=== PATIENT | female | born 1965 | race African-American/Black ===

== ENCOUNTER 2018-01-26 15:56 | Emergency (ER) | END 2018-01-26 19:57 | disposition home or self-care (01) ==

== ENCOUNTER 2018-10-21 22:16 | Emergency (ER) | payer OTHER ==
[~2018-10-21] VITALS: Ht 170.2 cm; Wt 104.0 kg
[~2018-10-21 22:16] MED LIST: DOXY100T20 PO; HYDR-4011 PO
[2018-10-21 22:24] VITALS: Ht 170.2 cm; Wt 104.0 kg
--- NOTE | 2018-10-22 00:34 | ERD ---
ER Documentation Chief Complaint Chief Complaint HEADACHE SINCE 1400/HYPERTENSIVE HPI This is a 53-year-old female who presents here to emerge department with complaints of occipital headache and frontal headache for about a day. Also complains of dizziness. Stated that she was on antihypertensive medication before and they took her off. LMP: Stated that it was October 2017. G9, P3 M2 A3 and 1 tubal . Denies head injury, loss of consciousness, dizziness, neck pain, neck stiffness, throat pain, difficulty swallowing, difficulty breathing lying flat, shoulder pain, chest pain, back pain, abdominal pain, nausea, vomiting, constipation, diarrhea, urinary symptoms, or possibility being , loss of bowel and bladder control, trauma, injury, falls, difficulty walking due to pain, numbness or tingling sensation, calf pain, recent travel, recent major surgery in the last 3 weeks, calf pain, recent long travel, recent exposure to any illness, recent antibiotic use in the last 3 months, fever, chills, seizures. Past medical history: Medication: Methocarbamol. Gabapentin. Baclofen. Surgical history: Social: Denies smoking, use of alcoholic beverages, use of illegal drugs. ROS All systems reviewed and are negative except as per history of present illness. Medications Home Meds Active Scripts Meclizine Hcl* (Antivert*) 12.5 Mg Tab, 12.5 MG PO Q6H PRN for DIZZINESS, #20 TAB Prov:PASILABAN,MARSHAAR F 10/22/18 Omeprazole* (Omeprazole*) 40 Mg Capsule.dr, 40 MG PO DAILY, #30 CAP Prov:PASILABAN,KLAR F 10/22/18 Ibuprofen* (Motrin*) 800 Mg Tab, 800 MG PO Q6H PRN for PAIN AND OR ELEVATED TEMP, #30 TAB Prov:PASILABAN,KLAR F 10/22/18 Nnkgldmxyq-Pgjmiqmvqqjym-Silnvwfu* (Fioricet*) 50-300-40 Mg Capsule, 1 CAP PO Q4H PRN for HEADACHE, #14 CAP Prov:PASILABAN,KLAR F 10/22/18 Hydrocodone/Acetaminophen ([place]wood 5-325 Tablet) 1 Each Tablet, 1 TAB PO Q6H PRN for PAIN, #15 TAB Prov:CAN LEZAMA MD 01/26/18 Doxycycline Hyclate* (Doxycycline Hyclate*) 100 Mg Tablet., 100 MG PO BID for 14 Days, TAB Prov:GENET EDMONDS DO 11/16/15 Allergies Allergies: Coded Allergies: No Known Allergy (Unverified , 11/16/15) PMhx/Soc History of Surgery: No Anesthesia Reaction: No Hx Neurological Disorder: No Hx Respiratory Disorders: No Hx Cardiac Disorders: Yes (HTN) Hx Psychiatric Problems: No Hx Miscellaneous Medical Probl: No Hx Alcohol Use: No Hx Substance Use: Yes (marijuana) Hx Tobacco Use: No Physical Exam Vitals Vital Signs Date Temp Pulse Resp B/P (MAP) Pulse Ox O2 O2 Flow FiO2 Time Delivery Rate 10/22/18 98.6 67 18 148/100 100 Room Air 02:28 (116) 10/22/18 75 20 154/93 00:48 (113) 10/21/18 97.9 72 20 176/97 100 22:24 (123) Physical Exam Const: No acute distress Head: Atraumatic Eyes: Normal Conjunctiva. No visual field loss. ENT: Normal External Ears, Nose and Mouth. Bilateral ears: TMs are not erythematous. No bleeding. No discharge with no hearing loss. No mastoid tenderness. Nose: Midline without deviation. No septal hematoma. Throat/lips: No lip swelling. Uvula is midline and nondisplaced. Tonsils are +1 bilaterally without redness without exudates. Tolerating secretions with patent airway. Speaks full and clear sentences. Patent airway. Neck: Full range of motion. No meningismus. No nuchal rigidity. No signs of meningeal irritation. Resp: Clear to auscultation bilaterally. Cardio: Regular rate and rhythm, no murmurs Abd: Soft, non tender, non distended. Normal bowel sounds. No abdominal tenderness. Skin: No petechiae or rashes. No diaphoresis. Color appears normal for ethnicity. No skin tenting. No signs of severe dehydration. Back: No midline or flank tenderness Ext: No cyanosis, or edema Neur: Awake and alert. No obvious facial droop. Sensation is intact. Follows commands. Equal learning disabilities resource teacher. Equal strength in bilateral upper and lower extremities. Romberg test is negative. No neurological deficits. Psych: Normal Mood and Affect. Denies auditory/visual hallucinations/delusions. Not suicidal. Not homicidal. Has the capacity to decide for herself. Has good support system at home. Results 24 hrs Laboratory Tests Test 10/22/18 00:39 Urine Color YELLOW Urine Clarity CLOUDY Urine pH 7.0 Urine Specific [place] 1.017 Urine Ketones NEGATIVE mg/dL Urine Nitrite NEGATIVE mg/dL Urine Bilirubin NEGATIVE mg/dL Urine Urobilinogen NEGATIVE mg/dL Urine Leukocyte Esterase TRACE Dileep/ul Urine Microscopic RBC 2 /HPF Urine Microscopic WBC 5 /HPF Urine Squamous Epithelial Cells FEW /HPF Urine Amorphous Crystals FEW /HPF Urine Yeast (Budding) MANY /HPF Urine Hemoglobin NEGATIVE mg/dL Urine Glucose NEGATIVE mg/dL Urine Total Protein NEGATIVE mg/dl Urine Test NEGATIVE Current Medications Medications Dose Sig/Barbara Start Time Status Last (Trade) Ordered Route PRN Stop Time Admin Dose Reason Admin 1 tab ONCE ONCE 10/22/18 DC 10/22/18 Acetaminophen PO 01:00 00:45 / 10/22/18 01:01 Hydrocodone Bitart (Greenwood (25)) Procedures/MDM Diagnostic tests: hCG urine: Negative. Urinalysis: Reviewed. CT of the brain: 1. Bilateral likely mucous retention cysts in the maxillary sinuses, with relatively high attenuation in the left maxillary sinus mucous retention cyst. 2. Differential considerations include proteinaceous material within the left maxillary sinus mucous retention cyst versus a polyp. 3. Otherwise, no evident acute process in the head. Treatment: Greenwood p.o. Re-evaluation: Denies headache, dizziness. No facial droop. Equal learning disabilities resource teacher. Equal strength bilateral upper and lower extremities. Romberg test negative. No neurological deficits. Denies auditory/visual hallucinations/delusions. Not suicidal. Not homicidal. Has the capacity to decide for herself. Has good support system at home. Differential diagnosis I have low suspicion for subarachnoid hemorrhage, meningitis, acute closure angle glaucoma, sepsis, mastoiditis, peritonsillar abscess. Final diagnosis: Headache. Prescription: Motrin. Fioricet. Antivert. Omeprazole. Follow-up with PCP in the next 24-48 hours. PCP to refer patient to neurologist if symptoms persist. Come back here in the emergency department for any new symptoms or any worsening symptoms. All questions and concerns were answered. Patient and family members verbalized understanding and agreed with plan of care. Hemodynamically stable on discharge. Departure Diagnosis: Primary Impression: Headache Condition: Stable Additional Instructions: Follow-up with PCP in the next 24-48 hours. PCP to refer patient to neurologist if symptoms persist. Come back here in the emergency department for any new symptoms or any worsening symptoms. ELTON NAGEL October 22, 2018 00:34
[2018-10-22] MEDS ORDERED: HYDROCODONE/APAP (10/325) TAB PO ONE (01:00)
[2018-10-22] MEDS ORDERED: IBUP800T48 PO (01:49)
[2018-10-22] MEDS ORDERED: OMEP40CA6 PO (01:49)
[2018-10-22] MEDS ORDERED: BUTA1CAP38 PO (01:49)
[2018-10-22] MEDS ORDERED: MECL12.574 PO (01:50)
[2018-10-22 02:28] VITALS: BP 148/100; PULSE 67; RESP 18
== END 2018-10-22 02:29 | disposition home or self-care (01) ==
LOC: FTE 22:16
DX: R51 Headache (principal); I10 Essential (primary) hypertension
CPT/HCPCS: 70450; 81001; 84703; Z7610

== ENCOUNTER 2018-12-25 06:21 | Observation (INO) | payer OTHER ==
[~2018-12-25] VITALS: Ht 167.6 cm; Wt 101.1 kg
[~2018-12-25 06:21] MED LIST changes: +BUTA1CAP38 PO; +IBUP800T48 PO; +MECL12.574 PO; +OMEP40CA6 PO
[2018-12-25 06:24] VITALS: Ht 167.6 cm; Wt 101.1 kg
[2018-12-25] MEDS ORDERED: KETOROLAC 15 MG INJ IV STA (06:56)
[2018-12-25] MEDS ORDERED: ONDANSETRON 4 MG INJ IV STA (06:56)
[2018-12-25] MEDS ORDERED: LACTATED RINGER'S 1,000 ML IV STA (06:56)
[2018-12-25] MEDS ORDERED: LORAZEPAM 2 MG INJ IV ONE (07:00)
--- NOTE | 2018-12-25 07:02 | ERD ---
ER Documentation Chief Complaint Chief Complaint left sided abdominal pain, n/v and diarrhea x 4 days HPI This is a 53-year-old woman brought in by son for complaints of diffuse abdominal pain and cramping and multiple episodes of clear nonbloody nonbilious emesis x3 days. She states she has had intermittent diarrhea as well. She denies blood per rectum or melena, no hematemesis, no fevers or chills, no dysuria, no complaints of chest pain or shortness of breath. Patient denies similar episodes of vomiting in the past ROS All systems reviewed and are negative except as per history of present illness. Medications Home Meds Active Scripts Mag Hydrox/Al Hydrox/Simeth (Maalox Advanced Suspension) 355 Ml Oral.susp, 2 TSP PO TID PRN for PAIN, #24 OZ Prov:WALLY EASTMAN MD 12/25/18 Naproxen* (Naprosyn*) 500 Mg Tablet, 500 MG PO BID PRN for PAIN AND/OR INFLAMMATION, #30 TAB Prov:WALLY EASTMAN MD 12/25/18 Ondansetron Hcl* (Zofran*) 4 Mg Tablet, 4 MG PO Q8H PRN for NAUSEA AND/OR VOMITING, #30 TAB Prov:WALLY EASTMAN MD 12/25/18 Reported Medications Hydrocodone/Acetaminophen ([place] 10-325 Tablet) 1 Each Tablet, 1 EACH PO DAILY, TAB 12/25/18 Baclofen* (Baclofen*) 20 Mg Tablet, 20 MG PO Q8, TAB 12/25/18 Gabapentin* (Gabapentin*) 600 Mg Tablet, 600 MG PO TID, #90 TAB 12/25/18 Discontinued Scripts Meclizine Hcl* (Antivert*) 12.5 Mg Tab, 12.5 MG PO Q6H PRN for DIZZINESS, #20 TAB Prov:PASILAELTON GREGG 10/22/18 Omeprazole* (Omeprazole*) 40 Mg Capsule.dr, 40 MG PO DAILY, #30 CAP Prov:PASILABANELTON 10/22/18 Ibuprofen* (Motrin*) 800 Mg Tab, 800 MG PO Q6H PRN for PAIN AND OR ELEVATED TEMP, #30 TAB Prov:PASILAELTON GREGG 10/22/18 Vtmkpkfucy-Bspmpeeuofxcz-Ntdzouvw* (Fioricet*) 50-300-40 Mg Capsule, 1 CAP PO Q4H PRN for HEADACHE, #14 CAP Prov:ELTON NAGEL Wilmer 10/22/18 Hydrocodone/Acetaminophen ([place] 5-325 Tablet) 1 Each Tablet, 1 TAB PO Q6H PRN for PAIN, #15 TAB Prov:CAN LEZAMA MD 01/26/18 Doxycycline Hyclate* (Doxycycline Hyclate*) 100 Mg Tablet.dr, 100 MG PO BID for 14 Days, TAB Prov:GENET EDMONDS DO 11/16/15 Allergies Allergies: Coded Allergies: No Known Allergy (Unverified , 12/25/18) PMhx/Soc Morbid obesity, gastritis, hypertension Medical and Surgical Hx: pt denies Medical Hx, pt denies Surgical Hx History of Surgery: No Anesthesia Reaction: No Hx Neurological Disorder: No Hx Respiratory Disorders: No Hx Cardiac Disorders: Yes (HTN) Hx Psychiatric Problems: No Hx Miscellaneous Medical Probl: No Hx Alcohol Use: No Hx Substance Use: Yes (marijuana) Hx Tobacco Use: No Smoking Status: Current every day smoker FmHx Family History: No diabetes Physical Exam Vitals Vital Signs Date Temp Pulse Resp B/P (MAP) Pulse Ox O2 O2 Flow FiO2 Time Delivery Rate 12/25/18 97.3 70 20 144/104 96 06:24 (117) Physical Exam GENERAL: Well-developed, well-nourished, well-hydrated, nauseous, looks nontoxic in appearance CARDIAC: Regular rate and rhythm, no murmurs rubs or gallops LUNGS: Clear bilaterally no wheezing crackles or stridor ABDOMEN: Soft nontender, no guarding, no rigidity, no rebound, no psoas sign no obturator sign. SKIN: Warm and dry to touch, no abrasions, contusions, or hematomas, no lacerations, no ecchymosis, no target lesions, and without ulcers EXTREMITIES: No clubbing cyanosis or edema, calves are bilaterally symmetrical, no Homans sign, no popliteal cord sign. Distal pulses equal and bilateral PSYCH: Anxious and agitated Result Diagram: 12/25/1864212/25/18642 Results 24 hrs Laboratory Tests Test 12/25/18 06:43 12/25/18 09:00 White Blood Count 4.4 10^3/ul Red Blood Count 4.42 10^6/ul Hemoglobin 13.0 g/dl Hematocrit 38.5 % Mean Corpuscular Volume 87.1 fl Mean Corpuscular Hemoglobin 29.4 pg Mean Corpuscular Hemoglobin Concent 33.8 g/dl Red Cell Distribution Width 13.3 % Platelet Count 253 10^3/UL Mean Platelet Volume 10.7 fl Immature Granulocytes % 0.200 % Neutrophils % 56.4 % Lymphocytes % 33.5 % Monocytes % 9.0 % Eosinophils % 0.2 % Basophils % 0.7 % Nucleated Red Blood Cells % 0.0 /100WBC Immature Granulocytes # 0.010 10^3/ul Neutrophils # 2.5 10^3/ul Lymphocytes # 1.5 10^3/ul Monocytes # 0.4 10^3/ul Eosinophils # 0.0 10^3/ul Basophils # 0.0 10^3/ul Nucleated Red Blood Cells # 0.0 10^3/ul Sodium Level 143 mmol/L Potassium Level 3.7 mmol/L Chloride Level 110 mmol/L Carbon Dioxide Level 26 mmol/L Anion Gap 7 Blood Urea Nitrogen 10 mg/dl Creatinine 0.56 mg/dl Est Glomerular Filtrat Rate mL/min > 60 mL/min Glucose Level 143 mg/dl Hemoglobin A1c 5.2 % Calcium Level 9.4 mg/dl Total Bilirubin 0.3 mg/dl Direct Bilirubin 0.00 mg/dl Indirect Bilirubin 0.3 mg/dl Aspartate Amino Transf (AST/SGOT) 28 IU/L Alanine Aminotransferase (ALT/SGPT) 22 IU/L Alkaline Phosphatase 85 IU/L Total Protein 7.7 g/dl Albumin 4.3 g/dl Globulin 3.40 g/dl Albumin/Globulin Ratio 1.26 Lipase 48 U/L Serum HCG, Qualitative NEGATIVE Urine Color YELLOW Urine Clarity CLOUDY Urine pH 9.0 Urine Specific [place] 1.015 Urine Ketones NEGATIVE mg/dL Urine Nitrite NEGATIVE mg/dL Urine Bilirubin NEGATIVE mg/dL Urine Urobilinogen NEGATIVE mg/dL Urine Leukocyte Esterase NEGATIVE Dileep/ul Urine Microscopic RBC 1 /HPF Urine Microscopic WBC 0 /HPF Urine Squamous Epithelial Cells FEW /HPF Urine Amorphous Crystals MANY /HPF Urine Hemoglobin NEGATIVE mg/dL Urine Glucose NEGATIVE mg/dL Urine Total Protein NEGATIVE mg/dl Urine Opiates Screen Negative Urine Barbiturates Negative Urine Amphetamines Screen Negative Urine Benzodiazepines Screen Negative Urine Cocaine Screen Negative Urine Cannabinoids Positive Current Medications Medications Dose Sig/Barbara Start Time Status Last (Trade) Ordered Route PRN Stop Time Admin Dose Reason Admin Lactated 1,000 ml @ Q1H STAT 12/25/18 DC 12/25/18 Ringer's 1,000 mls/hr IV 06:56 07:09 12/25/18 07:55 Ondansetron 4 mg ONCE STAT 12/25/18 DC 12/25/18 HCl (Zofran IV 06:56 07:09 Inj) 12/25/18 06:58 Ketorolac 15 mg ONCE STAT 12/25/18 DC 12/25/18 Tromethamine IV 06:56 07:09 (Toradol) 12/25/18 06:58 Lorazepam 1 mg ONCE ONCE 12/25/18 DC 12/25/18 (Ativan) IV 07:00 07:09 12/25/18 07:01 Oxycodone/ 1 tab ONCE ONCE 12/25/18 DC 12/25/18 Acetaminophen PO 08:00 08:00 (Percocet 12/25/18 08:11 (5/ 325)) Procedures/MDM IV line was established patient was placed on site monitor rhythm strip revealed a sinus rhythm at about 90 bpm with upright P and T waves. Patient was afebrile I administered 1 L LR IV, Zofran 4 mg IV, Toradol 15 mg IV, Ativan 1 mg IV. She also received Percocet 1 tablet p.o. and metoclopramide 10 mg IV, for continued nausea vomiting administered haloperidol [address] scan of the abdomen pelvis was performed, no acute inflammatory infectious pathology was noted. Drug screen positive for cannabinoids, CBC and electrolytes were normal, liver function tests were normal. Patient will be admitted to [facility] for intractable vomiting. Departure Diagnosis: Primary Impression: Intractable vomiting Vomiting type: unspecified Nausea presence: with nausea Qualified Codes: R11.2 - Nausea with vomiting, unspecified Additional Impression: Cannabinoid hyperemesis syndrome Ruled Out: Vomiting Condition: WALLY Garnica MD Dec 25, 2018 07:02
[2018-12-25] MEDS ORDERED: OXYCODONE/ACETAMINOPHEN (5/325) TAB PO ONE (08:00)
[2018-12-25] MEDS ORDERED: ONDA4TAB8 PO (08:48)
[2018-12-25] MEDS ORDERED: NAPR-985 PO (08:48)
[2018-12-25] MEDS ORDERED: MAG355OR14 PO (08:48)
[2018-12-25] MEDS ORDERED: METOCLOPRAMIDE 10 MG INJ IV ONE (09:30)
[2018-12-25] MEDS ORDERED: GABA-526 PO (09:49)
[2018-12-25] MEDS ORDERED: BACL20TA PO (09:50)
[2018-12-25] MEDS ORDERED: HYDR-3980 PO (09:50)
[2018-12-25] MEDS ORDERED: HALOPERIDOL 5 MG INJ IM ONE (10:30)
[2018-12-25] MEDS ORDERED: ACETAMINOPHEN 325 MG TAB PO PRN (11:30)
[2018-12-25] MEDS ORDERED: NACL 0.9% 3 ML SYG IV SCH (11:30)
--- NOTE | 2018-12-25 11:30 | HP ---
Date/Time of Note Date/Time of Note DATE: 12/25/18 TIME: 11:30 Assessment/Plan VTE Prophylaxis Pharmacological prophylaxis: LMWH Lines/Catheters IV [facility] Saline Lock Assessment/Plan Hospital Course 53-year-old female with comorbidities including chronic back pain and obesity who presented to the emergency room with multiple complaints including nausea/vomiting, abdominal pain, and diarrhea, who will be admitted to inpatient setting for further treatment and evaluation. 1. Abdominal pain with multiple episodes of nausea. Etiology unclear. CT scan of the abdomen and pelvis negative for any acute findings. Possibly secondary to cannabinoid hyperemesis. Treat the patient symptomatically with antiemetics, prokinetics, and analgesics. Start the patient on a clear liquid diet. Continue IV hydration. 2. Chronic back pain. CT scan showing L4-L5 degenerative disc narrowing. Continue analgesics. 3. Obesity. BMI more than 35. Therapeutic lifestyle changes will be advised. 4. Marijuana use. Cessation will be advised. Plan: The patient will be admitted to inpatient medical surgical floor. The patient will be started on a clear liquid diet. The patient will be started on DVT prophylaxis. The patient will remain a full code. Activities will be as tolerated. The rest of the patient's management will be based on the clinical course and the results of diagnostic studies. Based on the patient's clinical presentation, she most probably requires at least 1 midnight's stay for further management and evaluation of her clinical presentation. The patient was seen in collaboration with Dr. Sharma. Result Diagram: 12/25/18 0643 12/25/18 0643 Results 24hrs Laboratory Tests Test 12/25/18 06:43 12/25/18 09:00 White Blood Count 4.4 #L Red Blood Count 4.42 Hemoglobin 13.0 Hematocrit 38.5 Mean Corpuscular Volume 87.1 Mean Corpuscular Hemoglobin 29.4 Mean Corpuscular Hemoglobin Concent 33.8 Red Cell Distribution Width 13.3 Platelet Count 253 Mean Platelet Volume 10.7 H Immature Granulocytes % 0.200 Neutrophils % 56.4 Lymphocytes % 33.5 Monocytes % 9.0 Eosinophils % 0.2 Basophils % 0.7 Nucleated Red Blood Cells % 0.0 Immature Granulocytes # 0.010 Neutrophils # 2.5 Lymphocytes # 1.5 Monocytes # 0.4 Eosinophils # 0.0 Basophils # 0.0 Nucleated Red Blood Cells # 0.0 Sodium Level 143 Potassium Level 3.7 Chloride Level 110 Carbon Dioxide Level 26 Anion Gap 7 Blood Urea Nitrogen 10 Creatinine 0.56 Est Glomerular Filtrat Rate mL/min > 60 Glucose Level 143 Calcium Level 9.4 Total Bilirubin 0.3 Direct Bilirubin 0.00 Indirect Bilirubin 0.3 Aspartate Amino Transf (AST/SGOT) 28 Alanine Aminotransferase (ALT/SGPT) 22 Alkaline Phosphatase 85 Total Protein 7.7 Albumin 4.3 Globulin 3.40 H Albumin/Globulin Ratio 1.26 Lipase 48 Serum HCG, Qualitative NEGATIVE Urine Color YELLOW Urine Clarity CLOUDY A Urine pH 9.0 Urine Specific [place] 1.015 Urine Ketones NEGATIVE Urine Nitrite NEGATIVE Urine Bilirubin NEGATIVE Urine Urobilinogen NEGATIVE Urine Leukocyte Esterase NEGATIVE Urine Microscopic RBC 1 Urine Microscopic WBC 0 Urine Squamous Epithelial Cells FEW Urine Amorphous Crystals MANY A Urine Hemoglobin NEGATIVE Urine Glucose NEGATIVE Urine Total Protein NEGATIVE HPI/ROS Admit Date/Time Admit Date/Time Hx of Present Illness This is a 53-year-old -[place] female with past medical history of chronic back pain. The patient is also obese with a BMI of more than 35 kg/m. The patient came to the emergency room with chief complaint of abdominal pain with multiple episodes of nonbilious, nonbloody vomiting that has been going on for the past few days. The patient verbalized that she has not been able to keep anything down. The patient also verbalized a few episodes of diarrhea. The patient denied any fevers or chills. The patient denied eating anything unusual. She denied any recent travels. She denied any known sick contacts. The patient denied any dysuria. She denied any vaginal discharge. She denied any flank pain. In the emergency room, the patient underwent a CT scan of the abdomen and pelvis that was showing no evidence of any bowel mass or obstruction and no evidence of any urolithiasis, obstructive uropathy, diverticulitis, or appendicitis. The patient did not have any underlying leukocytosis. The patient was treated with multiple antiemetics and analgesics with minimal improvement in the symptoms. ROS Constitutional: nausea, poor po Eyes: no complaints ENT: no complaints Respiratory: no complaints Cardiovascular: no complaints Gastrointestinal: pain, decreased appetite, diarrhea, nausea, vomiting Genitourinary: no complaints Musculoskeletal: back pain Skin: no complaints Neurologic: no complaints Endocrine: no complaints Lymphatic: no complaints Psychological: anxiety Immunologic: no complaints PMH/Family/Social Past Medical History 1. Chronic back pain. 2. Obesity. Coded Allergies: No Known Allergy (Unverified , 12/25/18) Past Surgical History Past Surgical Hx: no surgical history Social History Alcohol Use: occasionally Smoking Status: Current every day smoker Drug Use: marijuana Exam/Review of Systems Vital Signs Vitals Vital Signs Date Temp Pulse Resp B/P (MAP) Pulse Ox O2 O2 Flow FiO2 Time Delivery Rate 12/25/18 97.3 70 20 144/104 96 06:24 (117) Exam Exam General: Obese 53 year-old female lying in bed in no apparent distress. HEENT: Normocephalic, atraumatic. Eyes: Anicteric sclerae, conjunctivae clear. ENT: Nasal septum midline, oral mucosa is dry. Neck supple, no JVD noticed. Respiratory: Bilaterally diminished breath sounds. No use of accessory muscles of respiration. No adventitious breath sounds. Cardiovascular: S1, S2 heard. Regular rate and rhythm. Abdomen: Soft, nontender, and nondistended. Bowel sounds positive in all 4 quadrants. Genitourinary: Deferred. Extremities: No cyanosis, no clubbing, no edema. Peripheral pulses palpable. Neurologic: Cranial nerves II through XII grossly intact. The patient is awake, alert, and oriented. Skin: Normal skin turgor. No skin rashes. Additional Comments CT Abdomen & Pelvis IMPRESSION: No bowel mass or obstruction seen on limited noncontrast CT. No evidence of urolithiasis, obstructive uropathy, diverticulitis or appendicitis. Cholelithiasis. Vascular calcifications. GORDO KEENE NP Dec 25, 2018 11:30
[2018-12-25] MEDS: SOD CHLORIDE 0.9% 1,000 ML IV SCH (13:39)
[2018-12-25 14:00] VITALS: BP 145/78; PULSE 76; RESP 20
[2018-12-25] MEDS: ONDANSETRON 4 MG INJ IV PRN ×2 (14:31→20:34)
[2018-12-25] MEDS ORDERED: METOCLOPRAMIDE 10 MG INJ IV PRN (16:00)
[2018-12-25] MEDS: KETOROLAC 15 MG INJ IV PRN (16:11)
[2018-12-25 20:00] VITALS: BP 150/74; PULSE 50; RESP 17
[2018-12-25 20:30] VITALS: PULSE 61
[2018-12-25] MEDS ORDERED: ZOLPIDEM 5 MG TAB PO ONE (21:30)
[2018-12-26 02:00] VITALS: BP 152/75; PULSE 69; RESP 17
[2018-12-26] MEDS: SOD CHLORIDE 0.9% 1,000 ML IV SCH ×2 (05:12)
[2018-12-26] MEDS: ONDANSETRON 4 MG INJ IV PRN ×2 (05:15→11:54)
[2018-12-26] MEDS: KETOROLAC 15 MG INJ IV PRN (07:48)
[2018-12-26 08:02] VITALS: BP 149/68; PULSE 69; RESP 16
[2018-12-26] MEDS ORDERED: ENOXAPARIN 40 MG/0.4 ML SYG SC SCH (09:00)
[2018-12-26] MEDS ORDERED: POTASSIUM CHLORIDE (SR) 20 MEQ TAB PO STA (09:28)
[2018-12-26] MEDS ORDERED: MAGNESIUM SULFATE 2 GM/50 ML 50 ML IVPB ONE (10:30)
--- NOTE | 2018-12-26 12:32 | PDOCDIS ---
Discharge Instructions CONDITION [id number] Patient Condition: [id number] Stable HOME CARE INSTRUCTIONS: [id number] Diet Instructions: [id number] Regular FOLLOW UP/APPOINTMENTS Follow-up Plan Stone Pineda MD Specialty: Internal Medicine Office Address: [address] [place] [address] [place], [place] [id number] Office OTHER ORDERS: Other Orders: 1. Resume home medications. 2. Take a regular diet as tolerated. 3. Resume activities as tolerated. 4. Please follow-up with your primary care physician in 2 weeks. If you do not have a primary care physician, please call Dr. Stone Pineda's office. 5. Please go to the nearest emergency room if you have any significant abdominal pain, persistent nausea/vomiting, or any other unusual signs/symptoms. GORDO KEENE NP Dec 26, 2018 12:32
--- NOTE | 2018-12-26 12:59 | DS ---
Date/Time of Note Date/Time of Note DATE: 12/26/18 TIME: 12:56 Discharge Summary Admission/Discharge Info Admit Date/Time Dec 25, 2018 at 09:28 Discharge Date/Time Discharge Diagnosis 1. Abdominal pain with multiple episodes of nausea. Suspect cannabinoid hype remesis. 2. Chronic back pain. 3. Obesity. BMI 36 kg/m. 4. Marijuana use. Patient Condition: Stable Procedures CT Abdomen and Pelvis IMPRESSION: No bowel mass or obstruction seen on limited noncontrast CT. No evidence of urolithiasis, obstructive uropathy, diverticulitis or appendicitis. Cholelithiasis. Vascular calcifications. Hx of Present Illness This is a 53-year-old -[place] female with past medical history of chronic back pain. The patient is also obese with a BMI of more than 35 kg/m. The patient came to the emergency room with chief complaint of abdominal pain with multiple episodes of nonbilious, nonbloody vomiting that has been going on for the past few days. The patient verbalized that she has not been able to keep anything down. The patient also verbalized a few episodes of diarrhea. The patient denied any fevers or chills. The patient denied eating anything unusual. She denied any recent travels. She denied any known sick contacts. The patient denied any dysuria. She denied any vaginal discharge. She denied any flank pain. In the emergency room, the patient underwent a CT scan of the abdomen and pelvis that was showing no evidence of any bowel mass or obstruction and no evidence of any urolithiasis, obstructive uropathy, diverticulitis, or appendicitis. The patient did not have any underlying leukocytosis. The patient was treated with multiple antiemetics and analgesics with minimal improvement in the symptoms. Hospital Course The patient was admitted to inpatient setting. She was started on a clear liquid diet. She was maintained on antiemetics. The patient was also maintained on prokinetics. Etiology of the patient's presenting symptoms remain unclear. The patient's CT scan of the abdomen and pelvis was negative for any acute findings. The patient had some cholelithiasis. Although the patient's LFTs were within normal limits. It is highly suspected that the patient has possible underlying cyclic vomiting from marijuana use. The patient's urine drug screen was positive for marijuana. The patient was started on a clear liquid diet and the diet was advanced as tolerated to a regular consistency diet without any significant gastrointestinal symptoms. The patient's diarrhea has resolved. The patient's symptomatology could be probably secondary to viral g astroenteritis versus cannabinoid hyperemesis syndrome. The patient was advised on the importance of not using marijuana. The patient's chronic problems include chronic back pain. The patient's CT scan was showing L4-L5 degenerative disc narrowing. The patient is also obese with a BMI of 36 kg/m. The patient's hemoglobin A1c was within normal limits. The patient's fasting lipid panel was within normal limits. The patient was advised on weight reduction. The patient had a stable hospital course. The patient is stable to be discharged home. Discharge Instructions 1. Resume home medications. 2. Take a regular diet as tolerated. 3. Resume activities as tolerated. 4. Please follow-up with your primary care physician in 2 weeks. If you do not have a primary care physician, please call Dr. Stone Pineda's office. 5. Please go to the nearest emergency room if you have any significant abdominal pain, persistent nausea/vomiting, or any other unusual signs/symptoms. The patient verbalized understanding of her discharge instructions. The patient was seen in collaboration with Dr. Sharma. Home Meds Active Scripts Mag Hydrox/Al Hydrox/Simeth (Maalox Advanced Suspension) 355 Ml Oral.susp, 2 TSP PO TID PRN for PAIN, #24 OZ Prov:WALLY EASTMAN MD 12/25/18 Naproxen* (Naprosyn*) 500 Mg Tablet, 500 MG PO BID PRN for PAIN AND/OR INFLAMMATION, #30 TAB Prov:WALLY EASTMAN MD 12/25/18 Ondansetron Hcl* (Zofran*) 4 Mg Tablet, 4 MG PO Q8H PRN for NAUSEA AND/OR VOMITING, #30 TAB Prov:WALLY EASTMAN MD 12/25/18 Reported Medications Baclofen* (Baclofen*) 20 Mg Tablet, 20 MG PO Q8, TAB 12/25/18 Gabapentin* (Gabapentin*) 600 Mg Tablet, 600 MG PO TID, #90 TAB 12/25/18 Discontinued Reported Medications Hydrocodone/Acetaminophen (Lefor 10-325 Tablet) 1 Each Tablet, 1 EACH PO DAILY, TAB 12/25/18 Discontinued Scripts Meclizine Hcl* (Antivert*) 12.5 Mg Tab, 12.5 MG PO Q6H PRN for DIZZINESS, #20 TAB Prov:PASILABANMARSHAAR F 10/22/18 Omeprazole* (Omeprazole*) 40 Mg Capsule.dr, 40 MG PO DAILY, #30 CAP Prov:PASILABAN,MARSHAAR F 10/22/18 Ibuprofen* (Motrin*) 800 Mg Tab, 800 MG PO Q6H PRN for PAIN AND OR ELEVATED TEMP, #30 TAB Prov:PASILABAN,MARSHAAR F 10/22/18 Meuapeopqk-Tzqzpfnlcgfqz-Exyjpeez* (Fioricet*) 50-300-40 Mg Capsule, 1 CAP PO Q4H PRN for HEADACHE, #14 CAP Prov:PASILABAN,MARSHAAR F 10/22/18 Hydrocodone/Acetaminophen (Lefor 5-325 Tablet) 1 Each Tablet, 1 TAB PO Q6H PRN for PAIN, #15 TAB Prov:CAN LEZAMA MD 01/26/18 Doxycycline Hyclate* (Doxycycline Hyclate*) 100 Mg Tablet., 100 MG PO BID for 14 Days, TAB Prov:GENET EDMONDS DO 11/16/15 Follow-up Plan Stone Pineda MD Specialty: Internal Medicine Office Address: [address] [place] [address] Office Primary Care Provider Not On Staff Doctor Time spent on discharge: > 30 minutes Pending Labs Laboratory Tests Test 12/25/18 13:36 12/26/18 05:09 Ethyl Alcohol Level < 10.0 mg/dl (0-0) White Blood Count 7.7 10^3/ul (4.8-10.8) Red Blood Count 4.02 10^6/ul (4.20-5.40) Hemoglobin 11.9 g/dl (12.0-16.0) Hematocrit 35.2 % (37.0-47.0) Mean Corpuscular Volume 87.6 fl (82.0-101.0) Mean Corpuscular Hemoglobin 29.6 pg (29.0-33.0) Mean Corpuscular 33.8 g/dl (32.0-37.0) Hemoglobin Concent Red Cell Distribution Width 13.4 % (11.5-14.5) Platelet Count 212 10^3/UL (140-415) Mean Platelet Volume 11.6 fl (7.4-10.4) Immature Granulocytes % 0.500 % (0.001-0.429) Neutrophils % 71.6 % (39.0-77.0) Lymphocytes % 20.2 % (15.0-51.0) Monocytes % 7.6 % (0.0-11.0) Eosinophils % 0.0 % (0.0-7.0) Basophils % 0.1 % (0.0-2.0) Nucleated Red Blood Cells % 0.0 /100WBC (0.0-0.0) Immature Granulocytes # 0.040 10^3/ul (0.0-0.031) Neutrophils # 5.5 10^3/ul (1.6-7.5) Lymphocytes # 1.6 10^3/ul (0.8-2.9) Monocytes # 0.6 10^3/ul (0.3-0.9) Eosinophils # 0.0 10^3/ul (0.0-0.5) Basophils # 0.0 10^3/ul (0.0-0.1) Nucleated Red Blood Cells # 0.0 10^3/ul (0.0-0.0) Sodium Level 140 mmol/L (135-144) Potassium Level 3.0 mmol/L (3.5-5.1) Chloride Level 105 mmol/L (97-110) Carbon Dioxide Level 27 mmol/L (21-31) Anion Gap 8 (5-13) Blood Urea Nitrogen 7 mg/dl (7-20) Creatinine 0.59 mg/dl (0.44-1.00) Est Glomerular Filtrat > 60 mL/min (>60) Rate mL/min Glucose Level 114 mg/dl (70-220) Calcium Level 9.2 mg/dl (8.4-10.2) Phosphorus Level 2.9 mg/dl (2.5-4.9) Magnesium Level 1.6 mg/dl (1.7-2.5) Total Bilirubin 0.4 mg/dl (0.2-1.3) Direct Bilirubin 0.00 mg/dl (0.00-0.20) Indirect Bilirubin 0.4 mg/dl (0-1.1) Aspartate Amino Transf (AST/SGOT) 28 IU/L (15-46) Alanine 24 IU/L (13-69) Aminotransferase (ALT/SGPT) Alkaline Phosphatase 79 IU/L (42-121) Total Protein 6.7 g/dl (6.1-8.1) Albumin 3.7 g/dl (3.3-4.9) Globulin 3.00 g/dl (1.3-3.2) Albumin/Globulin Ratio 1.23 Triglycerides Level 110 mg/dl (0-149) Cholesterol Level 151 mg/dl (100-200) LDL Cholesterol, Calculated 79 mg/dl HDL Cholesterol 50 mg/dl (37-92) Cholesterol/HDL Ratio 3.0 RATIO GORDO KEENE NP Dec 26, 2018 12:59
[2018-12-26 14:21] VITALS: BP 127/68; PULSE 66; RESP 16
[2018-12-28] MEDS ORDERED: IBUPROFEN 600 MG TAB PO PRN (11:30)
== END 2018-12-26 15:53 | disposition home or self-care (01) ==
LOC: E/R 06:21 → PP2 09:28
PROVIDERS: ADMIT Internal Medicine; ATTEND Internal Medicine
DX: R10.9 Unspecified abdominal pain (principal); R11.0 Nausea; G89.29 Other chronic pain; M54.9 Dorsalgia, unspecified; E66.9 Obesity, unspecified; Z68.36 Body mass index [BMI] 36.0-36.9, adult; F12.10 Cannabis abuse, uncomplicated
CPT/HCPCS: 36415; 74176; 80053; 80061; 80307; 81001; 83036; 83690; 83735; 84100; 84703; 85025; 96374; 96375; J1630; J1650; J1885; J2060; J2405; J2765; J3475; J7030; J7120; Z7500; Z7502; Z7610; G0378